=== PATIENT | male | born 1940 | race Caucasian/White ===

== ENCOUNTER 2017-09-22 09:21 | Day surgery (SDC) | payer MEDICARE, OTHER ==
[2017-09-22] MEDS: DOCUSATE SODIUM 100 MG CAP PO ×2 (09:00→20:15)
[2017-09-22] MEDS ORDERED: LR 1,000 ML IV (10:00)
[2017-09-22] MEDS ORDERED: MIDAZOLAM INJ 2 MG/2 ML VIAL (J2250) As Ordered (10:51)
[2017-09-22] MEDS ORDERED: fentaNYL 100 MCG/2 ML INJECTION (J3010) As Ordered (10:51)
[2017-09-22] MEDS ORDERED: PROPOFOL 200 MG/20 ML VIAL As Ordered (10:51)
[2017-09-22] MEDS ORDERED: LIDOCAINE 2% INJ 100 MG/5 ML SDV (FOR ANES.) As Ordered (10:51)
[2017-09-22] MEDS ORDERED: ceFAZolin 2 GM/D5W 50 ML IV BAG (J0690 PER 500MG) As Ordered (11:17)
[2017-09-22] MEDS: LIDOCAINE 1% SDV INJ 30 ML VIAL As Ordered (12:41)
[2017-09-22] MEDS: BACITRACIN PWD 50,000 UNITS VIAL As Ordered (12:41)
[2017-09-22] MEDS ORDERED: ACETAMINOPHEN TAB 650MG DOSE (2X325MG) PO (13:00)
[2017-09-22] MEDS: LR 1,000 ML IV (13:15)
[2017-09-22] MEDS ORDERED: fentaNYL 100 MCG/2 ML INJECTION (J3010) IV (13:15)
[2017-09-22] MEDS: ceFAZolin SOD 1 GM in D5W MINI-BAG PLUS 50 ML IV (19:44)
[2017-09-22] MEDS: ATORVASTATIN 20 MG TAB PO (20:15)
[2017-09-22] MEDS: LISINOPRIL 10 MG TAB PO (20:16)
[2017-09-22] MEDS: OMEPRAZOLE 20 MG CAP PO (20:16)
[2017-09-23] MEDS: ceFAZolin SOD 1 GM in D5W MINI-BAG PLUS 50 ML IV ×2 (02:36→10:52)
[2017-09-23] MEDS: traMADol 50 MG TAB PO (02:37)
[2017-09-23] MEDS: DOCUSATE SODIUM 100 MG CAP PO (08:54)
== END 2017-09-23 18:45 | disposition home or self-care (01) ==
LOC: M SDC 09:21 → M PCU 15:31
DX: T82.190A Other mechanical complication of cardiac electrode, initial encounter (principal); I48.2 Chronic atrial fibrillation; I44.30 Unspecified atrioventricular block; I35.9 Nonrheumatic aortic valve disorder, unspecified; I34.8 Other nonrheumatic mitral valve disorders; K21.9 Gastro-esophageal reflux disease without esophagitis; N18.3 Chronic kidney disease, stage 3 (moderate); Z88.8 Allergy status to other drugs, medicaments and biological substances; Z88.5 Allergy status to narcotic agent; Z79.02 Long term (current) use of antithrombotics/antiplatelets; Z79.899 Other long term (current) drug therapy; Y71.8 Miscellaneous cardiovascular devices associated with adverse incidents, not elsewhere classified
CPT/HCPCS: 33216

== ENCOUNTER → 2018-09-28 | Outpatient (REF) | payer MEDICARE, OTHER ==
[~2018-09-28] MED LIST: ATOR40TA75 PO; ELIQ5TAB PO; LISI10TA4 PO; OMEP40CA2 PO; TYLE325T5 PO; VITA100018 PO; VITA100067 PO
== END ==
LOC: M LAB LCGH 13:37
PROVIDERS: ATTEND Surgery
DX: K44.9 Diaphragmatic hernia without obstruction or gangrene (principal); K21.9 Gastro-esophageal reflux disease without esophagitis; R63.4 Abnormal weight loss; Z86.010 Personal history of colon polyps

== ENCOUNTER → 2020-11-02 | Outpatient (REF) | payer MEDICARE, OTHER ==
[~2020-11-02] MED LIST changes: +LISI10TA22 PO; -LISI10TA4 PO; -OMEP40CA2 PO; +OMEP40CA4 PO
== END ==
LOC: M LAB REF 17:15
PROVIDERS: ATTEND Nurse Practitioner Family
DX: E83.42 Hypomagnesemia (principal)

== ENCOUNTER → 2023-11-28 | Outpatient (REF) | payer MEDICARE, OTHER ==
[2023-11-28 19:41] LABS: FERRITIN 379.3 NG/ML (10.5-307.3); PERCENT SATURATION 28.6 % (19.7-50.0)
== END ==
LOC: M LAB REF 17:21
PROVIDERS: ATTEND Nurse Practitioner Family
DX: D50.9 Iron deficiency anemia, unspecified (principal)